=== PATIENT | male | born 1975 ===

== ENCOUNTER 2021-04-29 13:03 | Emergency (ER) | payer OTHER ==
[2021-04-29] MEDS ORDERED: Tetracaine HCl/PF 0.5% 4 ML Bottle EYEBOTH ONE (13:07)
[2021-04-29] MEDS ORDERED: Erythromycin Base 0.5% Ophth Oint 1 GM Tube EYEBOTH ONE (13:31)
== END 2021-04-29 14:13 | disposition home or self-care (01) ==
LOC: MW.ED 13:03
DX: S05.01XA Injury of conjunctiva and corneal abrasion without foreign body, right eye, initial encounter (principal); Z88.8 Allergy status to other drugs, medicaments and biological substances; Z72.0 Tobacco use; W22.09XA Striking against other stationary object, initial encounter
CPT/HCPCS: 99283; A9270